=== PATIENT | female | born 1950 | race Caucasian/White ===

== ENCOUNTER 2016-05-24 14:52 | Emergency (ER) | payer MEDICARE, BC ==
[2016-05-24 15:11] VITALS: BP 139/82
--- NOTE | 2016-05-24 17:18 | RAD ---
Indication: Fall, right hip pain. 2. views of the right hip including an AP view the pelvis demonstrates no fracture. Joint spaces well-preserved. IMPRESSION: Unremarkable right hip.
--- NOTE | 2016-05-24 17:18 | RAD ---
Indication: Right thumb pain. 3 views of the right thumb demonstrates degenerative changes of the trapezium first metacarpal joint. Valgus deformity of the middle phalanx is noted. IMPRESSION: No fracture is identified although degenerative changes of the trapezium first metacarpal joint is noted.
--- NOTE | 2016-05-24 18:21 | UC ---
Minor Trauma HPI - HPI Summary HPI Summary: SLIPPED ON ICE WHEN HEADING INTO WORK TODAY. FELL AND LANDED ON RIGHT SIDE AND STRUCK HIP ON PAVEMENT AND FOOSHED RIGHT HAND. - History of Current Complaint Chief Complaint: UCUpperExtremity Stated Complaint: HIP/HAND INJ-PT FELL Time Seen by Provider: 05/24/16 16:15 Hx Obtained From: Patient Onset/Duration: Sudden Onset, Lasting Hours, Still Present Onset Of Pain: Immediate Severity Initially: Moderate Severity Currently: Moderate Pain Intensity: 4 Pain Scale Used: 0-10 Numeric Mechanism Of Injury: Fall From Height Of: Aggravating Factor(s): Other: - TOUCH Alleviating Factor(s): Nothing Associated Signs And Symptoms: Negative: Loss Of Consciousness - Allergies/Home Medications Allergies/Adverse Reactions: Allergies Allergy/AdvReac Type Severity Reaction Status Date / Time Bee Venom Allergy Severe swelling, Verified 05/24/16 15:11 hives, blood poisoning Sulfamethoxazole Allergy Intermediate Rash Verified 05/24/16 15:11 w/Trimethoprim [From Bactrim] iodine contrast Allergy Severe Hives Uncoded 05/24/16 15:11 any bug bite Allergy Intermediate Edema Uncoded 05/24/16 15:11 PMH/Surg Hx/FS Hx/Imm Hx - Additional Past Medical History Additional PMH: OSTEOPOROSIS Endocrine History Of: Denies: Diabetes, Thyroid Disease Cardiovascular History Of: Denies: Cardiac Disorders, Hypertension Respiratory History Of: Denies: COPD, Asthma GI/ History Of: Denies: Ulcer Cancer History Of: Denies: Breast Cancer - Surgical History Surgical History: None - Family History Known Family History: Positive: None, Cardiac Disease - mitral valve prolapse - father and brother, Diabetes - Social History Alcohol Use: None Substance Use Type: None Smoking Status (MU): Never Smoked Tobacco - Immunization History Most Recent Influenza Vaccination: Most Recent Tetanus Shot: UTD Review of Systems Constitutional: Negative Skin: Negative Respiratory: Negative Cardiovascular: Negative Gastrointestinal: Negative Musculoskeletal: Arthralgia All Other Systems Reviewed And Are Negative: Yes Physical Exam Triage Information Reviewed: Yes Appearance: Well-Appearing, No Pain Distress, Well-Nourished Vital Signs: Initial Vital Signs Temp 98.0 F 05/24/16 15:05 Pulse 74 05/24/16 15:05 Resp 18 05/24/16 15:05 BP 139/82 05/24/16 15:05 Pulse Ox 100 05/24/16 15:05 Vital Signs Reviewed: Yes Eyes: Positive: Conjunctiva Clear ENT: Positive: Hearing grossly normal Neck: Positive: Supple Respiratory: Positive: No respiratory distress, No accessory muscle use Cardiovascular: Positive: Pulses Normal Abdomen Description: Positive: Soft Musculoskeletal: Positive: ROM Intact, No Edema, Other: - TTP OVERLYING RIGHT GREATER TROCHNTER. TTP RIGHT 1ST MCP JOINT. NO SNUFFBOX TENDERNESS OR WRIST TENDERNESS Neurological: Positive: Alert Psychological: Positive: Age Appropriate Behavior Skin: Negative: rashes Diagnostics - Radiology RIGHT HIP XRAY Xray Interpretation: No Acute Changes Radiology Interpretation Completed By: Radiologist No standard instances Xray Interpretation: No Acute Changes Radiology Interpretation Completed By: Radiologist Minor Trauma Course/Dx - Differential Dx/Diagnosis Provider Diagnoses: 1. RIGHT THUMB CONTUSION. 2. RIGHT TROCHANTERIC BURSITIS Discharge - Discharge Plan Condition: Stable Disposition: HOME Patient Education Materials: Hip Bursitis (ED), Contusion in Adults (ED) Referrals: Indiana Caputo MD [Primary Care Provider] - If Needed Additional Instructions: XRAYS OF RIGHT HIP AND RIGHT THUMB UNREMARKABLE. OTC MEDS NEEDED FOR DISCOMFORT. CONTUSION: Your injury has resulted in a contusion -- a crushing of the deep tissues. No injury to important structures was detected during the physician's exam. Contusions vary in the amount of pain they cause, and in the length of time required for healing. Typically, the area will become bruised, and will remain painful to touch for two or three weeks. However, most patients are back to working and playing within a few days. After the initial period of rest and cold-packs, your symptoms (together with the doctor's recommendations) will determine how rapidly you can get back to full activity. Usually this means "do what feels okay, but don't do things that hurt." If re-examination was recommended, it's important to follow up as instructed. Call the doctor or return any time if pain increases, if swelling becomes severe, if you develop numbness or weakness in an injured extremity, or if any other alarming symptoms occur. IBUPROFEN MAX DOSE: 600MG (3 TABS) EVERY 6 HRS OR 800MG (4 TABS) EVERY 8 HRS OR NAPROXEN MAX DOSE: 440MG (2 TABS) EVERY 12 HRS
== END 2016-05-24 17:46 | disposition home or self-care (01) ==
LOC: UCEAST 14:52
DX: S60.011A Contusion of right thumb without damage to nail, initial encounter (principal); W00.0XXA Fall on same level due to ice and snow, initial encounter; Y93.89 Activity, other specified; Y92.89 Other specified places as the place of occurrence of the external cause; Y99.0 Civilian activity done for income or pay; Z88.2 Allergy status to sulfonamides; Z91.041 Radiographic dye allergy status; M70.61 Trochanteric bursitis, right hip; Y93.9 Activity, unspecified
CPT/HCPCS: 99211; G0463

== ENCOUNTER 2016-08-30 07:52 | Day surgery (SDC) | payer MEDICARE, BC ==
[~2016-08-30 07:52] MED LIST: Buffered Lidocaine 0.9% SYRIN* 5 ML/SYR SYRINGE INTRADERM ONE
[2016-08-30] MEDS ORDERED: Midazolam* 1 MG/ML 2 ML VIAL (2 MG) ONE ×2 (10:49→10:55)
[2016-08-30 11:19] VITALS: BP 123/70
--- NOTE | 2016-08-30 12:52 | OP ---
DATE OF OPERATION: 08/30/2016 - [facility] DATE OF : 1950. SURGEON: Stephen To M.D. PREOPERATIVE DIAGNOSIS: Cataract left eye. POSTOPERATIVE DIAGNOSIS: Cataract left eye. OPERATIVE PROCEDURE: Phacoemulsification left eye with IOL. DESCRIPTION OF PROCEDURE: The patient was brought to the operating room after being given 1/2% Alcaine with epinephrine drops in the preoperative area. The eye was prepped and draped in the usual sterile fashion. Sterile drape and eyelid speculum were placed. Again, topical 1/2% Alcaine with epinephrine was given. A paracentesis incision was made at the 3 o'clock position with the No.75 blade. Clear cornea incision 2.2 x 2.2-mm was created at the 6 o'clock position starting at the anterior limbus using the 2.2-mm keratome. The anterior chamber was irrigated with 0.4 mL of 1% non-preservative intracameral lidocaine and filled with DisCoVisc. A capsulorrhexis was completed using the cystotome and the Utrata forceps. Hydrodissection was performed with balanced salt solution. The lens nucleus was removed with the Phacoemulsification handpiece without incident. Cortex was removed with the irrigation-aspiration handpiece. The capsular bag was re-inflated using DisCoVisc and an SN60WF 19.5 implant was inserted with the shooter. The irrigation-aspiration handpiece was used to remove all residual DisCoVisc. The eye was refilled with balanced salt solution and the wound checked and found to be watertight. Topical Maxitrol drops were given. [id number]/[facility] #: [id number] [facility]
[2016-08-30] MEDS ORDERED: Buffered Lidocaine 0.9% SYRIN* 5 ML/SYR SYRINGE ONE (13:05)
[2016-08-30] MEDS ORDERED: Lidocaine 1% MPF* 2 ML VIAL ONE (13:05)
[2016-08-30] MEDS ORDERED: Lidocaine 1% MPF wEPI 200,000* 30 ML SDV ONE (13:05)
[2016-08-30] MEDS ORDERED: Povidone Iodine 5% OPTH* 30 ML BTL ONE (13:05)
[2016-08-30] MEDS ORDERED: Proparacaine 0.5% OPHTH.SOL* 15 ML BTL ONE (13:05)
[2016-08-30] MEDS ORDERED: Flurbiprofen 0.03% OPTH.SOL* 2.5 ML BTL ONE (13:05)
[2016-08-30] MEDS ORDERED: acetaZOLAMIDE TAB* 250 MG ONE (13:05)
[2016-08-30] MEDS ORDERED: Phenylephrine 2.5% OPTH.SOL* 2 ML BTL ONE (13:05)
[2016-08-30] MEDS ORDERED: Neomycin/Polymy/Dex OPTH.SUSP* MAXITROL 0.1% 5 ML ONE (13:05)
[2016-08-30] MEDS ORDERED: Cyclopentolate 1% OPTH.SOL* 2 ML BTL ONE (13:05)
== END 2016-08-30 11:26 | disposition home or self-care (01) ==
LOC: OREAST 07:52
PROVIDERS: ATTEND Specialist
DX: H25.13 Age-related nuclear cataract, bilateral (principal); Z88.1 Allergy status to other antibiotic agents
CPT/HCPCS: A9270-GY; J2001; J2250; V2632

== ENCOUNTER 2016-09-06 07:22 | Day surgery (SDC) | payer MEDICARE, BC ==
[~2016-09-06 07:22] MED LIST changes: +Acetaminophen TAB* 325 MG PO PRN; -Buffered Lidocaine 0.9% SYRIN* 5 ML/SYR SYRINGE INTRADERM ONE
[2016-09-06] MEDS ORDERED: Lidocaine 1% MPF wEPI 200,000* 30 ML SDV ONE (08:11)
[2016-09-06] MEDS ORDERED: acetaZOLAMIDE TAB* 250 MG ONE (08:11)
[2016-09-06] MEDS ORDERED: Neomycin/Polymy/Dex OPTH.SUSP* MAXITROL 0.1% 5 ML ONE (08:11)
[2016-09-06] MEDS ORDERED: Lidocaine 1% MPF* 2 ML VIAL ONE (08:11)
[2016-09-06] MEDS ORDERED: Buffered Lidocaine 0.9% SYRIN* 5 ML/SYR SYRINGE ONE (08:11)
[2016-09-06] MEDS ORDERED: Povidone Iodine 5% OPTH* 30 ML BTL ONE (08:11)
[2016-09-06] MEDS ORDERED: Flurbiprofen 0.03% OPTH.SOL* 2.5 ML BTL ONE (08:11)
[2016-09-06] MEDS ORDERED: Proparacaine 0.5% OPHTH.SOL* 15 ML BTL ONE (08:11)
[2016-09-06] MEDS ORDERED: Cyclopentolate 1% OPTH.SOL* 2 ML BTL ONE (08:11)
[2016-09-06] MEDS ORDERED: Phenylephrine 2.5% OPTH.SOL* 2 ML BTL ONE (08:11)
[2016-09-06] MEDS ORDERED: Midazolam* 1 MG/ML 5 ML VIAL (5 MG) ONE (08:47)
[2016-09-06 09:54] VITALS: BP 127/75
--- NOTE | 2016-09-06 12:20 | OP ---
DATE OF OPERATION: 09/06/16 - [facility] DATE OF : [birth year] SURGEON: Stephen To M.D. PREOPERATIVE DIAGNOSIS: Cataract, right eye. POSTOPERATIVE DIAGNOSIS: Cataract right eye. OPERATIVE PROCEDURE: Phacoemulsification, right eye with IOL. DESCRIPTION OF PROCEDURE: The patient was brought to the operating room after being given 1/2% Alcaine with epinephrine drops in the preoperative area. The eye was prepped and draped in the usual sterile fashion. Sterile drape and eyelid speculum were placed. Again, topical 1/2% Alcaine with epinephrine was given. A paracentesis incision was made at the 9 o'clock position with the No.75 blade. Clear cornea incision 2.2 x 2.2-mm was created at the 12 o'clock position starting at the anterior limbus using the 2.2-mm keratome. The anterior chamber was irrigated with 0.4 mL of 1% non-preservative intracameral lidocaine and filled with DisCoVisc. A capsulorrhexis was completed using the cystotome and the Utrata forceps. Hydrodissection was performed with balanced salt solution. The lens nucleus was removed with the Phacoemulsification handpiece without incident. Cortex was removed with the irrigation-aspiration handpiece. The capsular bag was re-inflated using DisCoVisc and an SN60WF 19.5 implant was inserted with the shooter. The irrigation-aspiration handpiece was used to remove all residual DisCoVisc. The eye was refilled with balanced salt solution and the wound checked and found to be watertight. Topical Maxitrol drops were given. [id number]/[facility] #: [id number] [facility]
[2016-09-06] MEDS ORDERED: Buffered Lidocaine 0.9% SYRIN* 5 ML/SYR SYRINGE INTRADERM ONE (12:30)
== END 2016-09-06 10:02 | disposition home or self-care (01) ==
LOC: OREAST 07:22
PROVIDERS: ATTEND Specialist
DX: H25.11 Age-related nuclear cataract, right eye (principal); Z88.1 Allergy status to other antibiotic agents; Z91.041 Radiographic dye allergy status
CPT/HCPCS: A9270-GY; J2001; J2250; V2632

== ENCOUNTER 2016-11-24 02:45 | Emergency (ER) | payer MEDICARE, OTHER ==
[2016-11-24 02:51] VITALS: BP 134/91
[2016-11-24] MEDS ORDERED: Amoxicillin/Clavulanate TAB* 875 MG PO ONE (03:21)
--- NOTE | 2016-11-24 03:43 | ED ---
Gold Green Benjamin, scribed for Froy Bernal MD on 11/24/16 at 0322 . Skin Complaint - HPI Summary HPI Summary: 66yo female presents with a red rash on her left upper arm by the triceps. Pt received shingles vaccine on Sunday and her rash occurred approximately 1 day after. Area is red, swollen, hot to touch, and is unbearably painful. Pt also reports diffuse body aches. Reports slight fever, but denies any SOB. - History of Current Complaint Chief Complaint: EDRashSkinAbscess Stated Complaint: REACTION TO SHINGLES SHOT Hx Obtained From: Patient Onset/Duration: Started Days Ago - 2-3 days Timing: Constant Onset Severity: Moderate Current Severity: Moderate Pain Intensity: 6 Pain Scale Used: 0-10 Numeric Skin Location: Arm - left upper arm Character: Swelling, Pain, Redness Aggravating Symptom(s): Touch, Other: - movement Alleviating Symptom(s): Nothing Associated Signs & Symptoms: Fever, Rash - left upper arm - Allergy/Home Medications Allergies/Adverse Reactions: Allergies Allergy/AdvReac Type Severity Reaction Status Date / Time Bee Venom Allergy Severe swelling, Verified 11/24/16 02:51 hives, blood poisoning Sulfamethoxazole Allergy Intermediate Rash Verified 11/24/16 02:51 w/Trimethoprim [From Bactrim] iodine contrast Allergy Severe Hives Uncoded 11/24/16 02:51 any bug bite Allergy Intermediate Edema Uncoded 11/24/16 02:51 PMH/Surg Hx/FS Hx/Imm Hx Endocrine/Hematology History: Denies: Hx Diabetes, Hx Thyroid Disease Cardiovascular History: Denies: Hx Hypertension, Other Cardiovascular Problems/Disorders Respiratory History: Denies: Hx Asthma, Hx Chronic Obstructive Pulmonary Disease (COPD), Other Respiratory Problems/Disorders GI History: Reports: Hx Hiatal Hernia - small Denies: Hx Ulcer, Other GI Disorders History: Reports: Hx Kidney Stones - 04/2014, passed Musculoskeletal History: Reports: Hx Scoliosis Denies: Hx Osteoporosis Sensory History: Reports: Hx Cataracts - elva, Hx Contacts or Glasses - glasses Denies: Hx Hearing Aid Opthamlomology History: Reports: Hx Cataracts - elva, Hx Contacts or Glasses - glasses Neurological History: Denies: Other Neuro Impairments/Disorders - Cancer History Hx Chemotherapy: No Hx Radiation Therapy: No - Surgical History Hx Anesthesia Reactions: No Infectious Disease History: No Infectious Disease History: Denies: Hx Hepatitis, Hx Human Immunodeficiency Virus (HIV), History Other Infectious Disease, Traveled Outside the [place] in Last 30 Days - Family History Known Family History: Positive: Cardiac Disease - mitral valve prolapse - father and brother, Diabetes - Social History Occupation: Retired Lives: Alone Alcohol Use: None Substance Use Type: Reports: None Smoking Status (MU): Never Smoked Tobacco Review of Systems Positive: Fever Eyes: Negative ENT: Negative Cardiovascular: Negative Respiratory: Negative Gastrointestinal: Negative Genitourinary: Negative Positive: Myalgia, Edema - left upper arm Positive: Rash - left upper arm Neurological: Negative Psychological: Normal All Other Systems Reviewed And Are Negative: Yes Physical Exam - Summary Physical Exam Summary: The patient is well-nourished in no acute distress and in no acute pain. The skin is warm and dry and skin color reflects adequate perfusion. There is a well defined erythematous area on the left tricep. Area is tender, coalescing. Not fluctulant, not an abscess. There is one solitary axillary lymph node on left. HEENT: The head is normocephalic and atraumatic. The pupils are equal and reactive. The conjunctivae are clear and without drainage. Nares are patent and without drainage. Mouth reveals moist mucous membranes and the throat is without erythema and exudate. The external ears are intact. The ear canals are patent and without drainage. The tympanic membranes are intact. Neck is supple with full range of motion and non-tender. There are no carotid bruits. There is no neck vein distension. Respiratory: Chest is non-tender. Lungs are clear to auscultation and breath sounds are symmetrical and equal. Cardiovascular: Hear is regular rate and rhythm. There is no murmur or rub auscultated. There is no peripheral edema and pulses are symmetrical and equal. Abdomen: The abdomen is soft and non-tender. There are normal bowel sounds heard in all four quadrants and there is no organomegaly palpated. Musculoskeletal: There is no back pain noted. Extremities are non-tender with full range of motion. There is good capillary refill. There is no peripheral edema or calf tenderness elicited. Neurological: Patient is alert and oriented to person, place and time. The patient has symmetrical motor strength in all four extremities. Cranial nerves are grossly intact. Deep tendon reflexes are symmetrical and equal in all four extremities. Psychiatric: The patient has an appropriate affect and does not exhibit any anxiety or depression. Triage Information Reviewed: Yes Vital Signs On Initial Exam: Initial Vitals Temp Pulse Resp BP Pulse Ox 98.0 F 65 18 134/91 100 11/24/16 02:48 11/24/16 02:48 11/24/16 02:48 11/24/16 02:48 11/24/16 02:48 Vital Signs Reviewed: Yes Diagnostics - Vital Signs Vital Signs Temp Pulse Resp BP Pulse Ox 11/24/16 02:48 98.0 F 65 18 134/91 100 - Laboratory Lab Statement: Any lab studies that have been ordered have been reviewed, and results considered in the medical decision making process. Course/Dx - Course Course Of Treatment: Reviewed pt's medication list and allergies. Blood pressure noted. - Differential Diagnoses - Skin Complaint Differential Diagnoses: Abscess, Allergic Reaction, Cellulitis - Diagnoses Provider Diagnoses: Cellulitis of left upper arm Discharge - Discharge Plan Condition: Stable Disposition: HOME Prescriptions: Amoxicillin/Clavulanate TAB* [Augmentin TAB 875*] 875 mg PO BID #14 tab Patient Education Materials: Cellulitis (ED) Referrals: Indiana Caputo MD [Primary Care Provider] - The documentation as recorded by the Gold may Benjamin accurately reflects the service I personally performed and the decisions made by Dolores osorio Drew, MD.
== END 2016-11-24 03:42 | disposition home or self-care (01) ==
LOC: ED 02:45
DX: L03.114 Cellulitis of left upper limb (principal); R50.9 Fever, unspecified; Z88.2 Allergy status to sulfonamides; Z91.030 Bee allergy status; Z91.041 Radiographic dye allergy status
CPT/HCPCS: 99282; A9270-GY

== ENCOUNTER 2017-08-28 06:20 | Day surgery (SDC) | payer MEDICARE, OTHER ==
--- NOTE | 2017-08-14 10:04 | HP ---
CC: Indiana Caputo MD * ADMISSION HISTORY AND PHYSICAL: DATE OF ADMISSION: 08/28/17 ATTENDING SURGEON: Hima Jim MD * (DICTATED BY ALLIE SEGUNDO) CHIEF COMPLAINT: Right inguinal hernia. HISTORY OF PRESENT ILLNESS: This is a 67-year-old generally healthy female who first knew about a right inguinal hernia as an incidental finding on CT scan of the abdomen and pelvis. At that time, she had no symptoms. In October 2016 after helping her daughter move, she noticed some pain in right groin, but that seemed to resolve. She was seen at that time by Dr. Jim, who confirmed the presence of a right inguinal hernia. She deferred repair because of lack of significant symptoms. More recently in the past month or two, she has noticed more right groin pain, particularly related to position or movement. She states that it feels like a pulled muscle. She will notice it sometimes even when turning over in bed. It is typically fleeting in nature and sometimes radiates to the right lower back. There are no symptoms to suggest incarceration or strangulation. No changes in bowel or bladder function. She was seen again by Dr. Jim on 08/02/17. Exam at that time confirmed the presence of a reducible right inguinal hernia. Dr. Jim has discussed with her the indications for repair , the risks, benefits and alternatives, as well as the methods thereof. She would like to proceed as scheduled with laparoscopic repair of right inguinal hernia with mesh. PAST MEDICAL HISTORY: Hypotension (largely asymptomatic), nephrolithiasis, osteoporosis (by DEXA scan; she has had workup with Dr. Herron). She has had at least 1 or more episodes of superficial thrombophlebitis, but no episodes of DVT. She has a history of scoliosis and a right breast lump that had been followed closely and apparently has resolved on its own. She has a past history of benign positional vertigo, which has been asymptomatic in recent years. PAST SURGICAL HISTORY: Her only previous surgery is bilateral cataract extraction with lens implant. CURRENT MEDICATIONS: 1. [place]ecaton[place] oil 500 mg once daily. 2. Vitamin D3 of 1000 IU once daily. 3. Vitamin B12 of 500 mcg once daily. 4. She has a prescription for meclizine, but has not needed to use it in recent years. DRUG ALLERGIES: BACTRIM (rash), IODINE (from IV contrast: She had a couple of hives), CLINDAMYCIN (rash?), (TYLENOL WITH CODEINE was listed on her chart record, but she states that she has used this successfully for pain related to her nephrolithiasis). FAMILY HISTORY: Negative for anesthesia problems, bleeding or clotting disorders. SOCIAL HISTORY: The patient is . She lives alone, but does have some local family support. She is a retired teacher. She denies use of tobacco, alcohol or recreational drugs. REVIEW OF SYSTEMS: General: No recent constitutional symptoms or acute illnesses. Weight has been stable. Eyes: No recent changes noted. Ears, Nose , Throat: No problems reported. Cardiovascular: History of hypotension (was noted especially on colonoscopy). No chest pain, palpitations, or history of murmur. Respiratory: No history of asthma, chronic cough, or shortness of breath. GI: No problems reported. Colonoscopy done in 2017, which she states was a normal study with no recommended followup. : As above. No hematuria. CROWN BUFFER: She is up to date within the past year for breast and pelvic exams, reportedly normal. Endocrine: No diabetes or thyroid dysfunction. PHYSICAL EXAMINATION GENERAL: Well-nourished, well-developed female, in no acute distress. VITAL SIGNS: Height 5 feet 1-1/2 inches, weight 126 pounds. Blood pressure 112 /72, pulse 60, respirations 16. HEENT: Pupils are equal, round, reactive. EOMs intact. No conjunctival pallor. Oropharynx: Teeth in good repair. No intraoral lesions. NECK: No lymphadenopathy in the cervical or supraclavicular regions. No thyromegaly or masses. LUNGS: Clear to auscultation. No wheezes. HEART: Regular rate and rhythm. No murmur appreciated. ABDOMEN: Soft, nontender to palpation. No palpable masses or organomegaly with the exception of the right inguinal hernia as per Dr. Jim' exam. GENITALIA: Not done. RECTAL: Not done. BACK: She does have some curvature related to her scoliosis. No CVA tenderness. EXTREMITIES: No edema. No palpable tenderness. NEUROLOGICAL: Grossly intact. SKIN: Warm and dry. No suspicious rashes or lesions. IMPRESSION: Right inguinal hernia. PLAN: Laparoscopic repair of right inguinal hernia with mesh. ALILE SEGUNDO [id number]/[facility] #: [id number] [facility] HOSPITALSharad
[~2017-08-28 06:20] MED LIST changes: -Acetaminophen TAB* 325 MG PO PRN; +Buffered Lidocaine 0.9% SYRIN* 5 ML/SYR SYRINGE INTRADERM ONE; +Metoclopramide TAB* 10 MG PO ONE; +celeCOXIB CAP* 100 MG PO ONE
[2017-08-28] MEDS ORDERED: celeCOXIB CAP* 100 MG ONE (07:03)
[2017-08-28] MEDS ORDERED: Metoclopramide TAB* 10 MG ONE (07:03)
[2017-08-28] MEDS ORDERED: ceFAZolin 2 GM PREMIX (*) 2 GM/50 ML BAG IVPB ONE (07:04)
[2017-08-28] MEDS ORDERED: Saline, Bacteriostatic* 30 ML VIAL ONE (07:11)
[2017-08-28] MEDS ORDERED: Bupivacaine 0.5% SDV PF* 30ML VIAL ONE (07:11)
[2017-08-28] MEDS ORDERED: Atracurium* 10 MG/ML 10 ML VIAL ONE (07:39)
[2017-08-28] MEDS ORDERED: Ketorolac INJ* 30 MG/ML 1 ML VIAL ONE (07:39)
[2017-08-28] MEDS ORDERED: Lidocaine 2% PF * 5 ML VIAL ONE (07:39)
[2017-08-28] MEDS ORDERED: Propofol* 10 MG/ML 20 ML BTL IV PUSH ONE (07:39)
[2017-08-28] MEDS ORDERED: Dexamethasone IV* 4 MG/ML 1 ML (4 MG) ONE (07:39)
[2017-08-28] MEDS ORDERED: fentaNYL* 50 MCG/ML 2 ML VIAL (100 MCG VIAL) ONE ×2 (07:39→10:53)
[2017-08-28] MEDS ORDERED: EPHEDrine (Pressors)* 50 MG/ML VIAL ONE (08:16)
[2017-08-28] MEDS ORDERED: Naloxone* 0.4 MG/ML 1 ML VIAL IV PRN (08:28)
[2017-08-28] MEDS ORDERED: DiMENhydriNATE IV* 50 MG/ML VIAL IV PUSH PRN (08:28)
[2017-08-28] MEDS ORDERED: fentaNYL* 50 MCG/ML 2 ML VIAL (100 MCG VIAL) IV PRN (08:28)
[2017-08-28] MEDS ORDERED: Ondansetron INJ* 2 MG/ML VIAL IV PRN (08:28)
[2017-08-28] MEDS ORDERED: HYDROcodone/ACETAMIN 5-325 MG* 1 TAB PO PRN (08:28)
--- NOTE | 2017-08-28 09:30 | PN ---
Progress Note - Progress Note Date of Service: 08/28/17 Note: Preop Dx: Right inguinal hernia Postop Dx: Same, indirect Procedure: laparoscopic right inguinal hernia repair with mesh Anesthesia: SANTY Surgeon: Diandra Assist: ALLIE Brady; Pretty STOREY EBL: less than 50ccs Specimen: none Fluids: 1200ml lactated ringers drains: none Findings: dictated
[2017-08-28] MEDS ORDERED: HYDROcodone/ACETAMIN 5-325 MG* 1 TAB ONE (09:31)
[2017-08-28] MEDS ORDERED: Acetaminophen TAB* 325 MG PO PRN (09:39)
[2017-08-28 11:19] VITALS: BP 139/83
--- NOTE | 2017-08-29 08:17 | OP ---
CC: Indiana Caputo MD * DATE OF OPERATION: 08/28/17 - [facility] DATE OF : 48 SURGEON: Hima Jim MD CARE AID: ALLIE Berg ANESTHESIOLOGIST: Dr. Frias. ANESTHESIA: General endotracheal. PRE-OP DIAGNOSIS: Right inguinal hernia. POST-OP DIAGNOSIS: Right inguinal hernia. OPERATIVE PROCEDURE: Laparoscopic preperitoneal repair, right inguinal hernia with mesh. ESTIMATED BLOOD LOSS: Minimal. IV FLUIDS: Crystalloid. SPECIMEN: None. DRAINS: None. COMPLICATIONS: None. COUNTS: Instrument, needle, and sponge counts were correct. DESCRIPTION OF PROCEDURE: The patient was brought to the operating room and placed on the table supine. Sequential compression devices were placed in both lower extremities. General anesthesia was administered. Turner catheter was placed. She was positioned and padded appropriately and then prepped and draped in usual sterile fashion. Time-out was performed. Local anesthetic was infiltrated into the skin and soft tissue prior to making each incision. A curvilinear infraumbilical incision was created and the subcutaneous tissues were divided with blunt dissection and cautery. The anterior rectus fascia was incised to the right of midline and then a preperitoneal balloon dissector was placed down to the level of the pubic symphysis. Under direct visualization, the dissector was insufflated and removed and replaced with a 12-mm blunt port. Carbon dioxide was insufflated then to a pressure of 10 mmHg and to the preperitoneal space. Two 5-mm trocars were placed in the lower midline. Dissection proceeded from the midline laterally, identifying and preserving the inferior epigastric vessels. There appeared to be an indirect inguinal hernia. The peritoneum was dissected free from the round ligament and in doing so the peritoneum was torn. This was closed off using the endoscopic clip groover and striper operator. After completing the dissection lateral to the anterosuperior iliac spine, repair was performed with the Medtronic ProGrip mesh. This was cut in a fashion to cover the direct, indirect and femoral spaces. It was placed into the preperitoneal space and properly positioned. Then, the 5-mm ports were removed. The 12-mm port was replaced into the peritoneal cavity and peritoneoscopy was performed. At which point, there was identified a small rent within the peritoneum and the pelvis. A 5-mm trocar was advanced into the peritoneal cavity and then the endoscopic clip groover and striper operator was again used at that time to close the defect in the peritoneum. The mesh appeared to be in good position. The carbon dioxide was released and ports were removed and then the umbilical site was closed with 0 Vicryl to approximate the fascia in 2 layers. The skin incisions were closed with 4-0 Monocryl in subcuticular fashion. Steri- Strips were applied. The patient tolerated this procedure well, was extubated and transferred to recovery in stable condition. [id number]/[facility] #: [id number] [facility]ENTER[facility]arad
== END 2017-08-28 11:40 | disposition home or self-care (01) ==
LOC: OR 06:20
PROVIDERS: ATTEND Surgery
DX: K40.90 Unilateral inguinal hernia, without obstruction or gangrene, not specified as recurrent (principal); I95.9 Hypotension, unspecified; Z87.442 Personal history of urinary calculi; M81.0 Age-related osteoporosis without current pathological fracture; Z86.72 Personal history of thrombophlebitis
CPT/HCPCS: A9270-GY; J0690; J1100; J1885; J2704; J3010

== ENCOUNTER 2017-12-31 10:37 | Emergency (ER) | payer MEDICARE, OTHER ==
[2017-12-31 10:46] VITALS: BP 136/77
--- NOTE | 2017-12-31 21:10 | UC ---
FLU HPI - HPI Summary HPI Summary: 67 y/o female with no PMH, no medications who presents with several days of sore throat, dry cough, low grade fever, body aches, swollen glands, bdy pains, chest/ nasal thighness/ congestion. Patient is concerned about flu, strep throat, would like testing. - History of Current Complaint Chief Complaint: UCRespiratory Stated Complaint: SORE THROAT,BODYACHES Time Seen by Provider: 12/31/17 11:33 Hx Obtained From: Patient ?: No Onset/Duration: Sudden Onset, Lasting Days Severity Currently: Mild Severity Initially: Moderate Pain Intensity: 4 Pain Scale Used: 0-10 Numeric - Allergy/Home Medications Allergies/Adverse Reactions: Allergies Allergy/AdvReac Type Severity Reaction Status Date / Time sulfamethoxazole Allergy Hives Verified 12/31/17 10:46 [From Bactrim] trimethoprim [From Bactrim] Allergy Hives Verified 12/31/17 10:46 Bee Venom Allergy Severe Swelling Uncoded 12/31/17 10:46 iodine contrast Allergy Severe Hives Uncoded 12/31/17 10:46 any bug bite Allergy Intermediate Edema Uncoded 12/31/17 10:46 PMH/Surg Hx/FS Hx/Imm Hx Previously Healthy: Yes - Surgical History Surgical History: Yes Surgery Procedure, Year, and Place: Bilateral cataracts 2017. Colonoscopy x2. hernia repair 2018 - Family History Known Family History: Positive: None, Cardiac Disease - mitral valve prolapse - father and brother, Diabetes - Social History Alcohol Use: None Substance Use Type: None Smoking Status (MU): Never Smoked Tobacco - Immunization History Most Recent Influenza Vaccination: 2012/2013 Most Recent Tetanus Shot: UTD Review of Systems Constitutional: Fever, Chills, Fatigue ENT: Sore Throat, Ear Ache, Sinus Congestion, Sinus Pain/Tenderness Respiratory: Cough Is Patient Immunocompromised?: No All Other Systems Reviewed And Are Negative: Yes Physical Exam Triage Information Reviewed: Yes Appearance: Well-Appearing, No Pain Distress, Well-Nourished Vital Signs: Initial Vital Signs Temp 97.4 F 12/31/17 10:42 Pulse 96 12/31/17 10:42 Resp 18 12/31/17 10:42 BP 136/77 12/31/17 10:42 Pulse Ox 99 12/31/17 10:42 Vital Signs Reviewed: Yes Eyes: Positive: Conjunctiva Clear ENT: Positive: Pharyngeal erythema - minimal, no exudates, TMs normal, Sinus tenderness - b/l, Uvula midline. Negative: TM dull, TM red, Tonsillar swelling , Tonsillar exudate Neck: Positive: Supple, Nontender, Enlarged Nodes @ - minimal b'l submand Respiratory: Positive: Chest non-tender, Normal breath sounds, No respiratory distress, No accessory muscle use, Wheezing - mild lower lobes. Negative: Respiratory distress, Decreased breath sounds, Crackles, Rhonchi, Stridor, Expiration Cardiovascular: Positive: RRR, No Murmur Flu Course/Dx - Course Course Of Treatment: probable pneumonia, abx given, follow up with PCP, conervative treatment rapid strep, flu negative - Differential Dx/Diagnosis Differential Diagnosis/HQI/PQRI: Pneumonia Provider Diagnoses: pneumonia Discharge - Sign-Out/Discharge Documenting (check all that apply): Patient Departure All imaging exams completed and their final reports reviewed: No Studies - Discharge Plan Condition: Good Disposition: HOME Prescriptions: Azithromyxin GABBY (NF) [Z-Gabby (Zithromax) 250 mg tabs #6] 2 tab PO .TODAY, THEN 1 DAILY #6 tab Patient Education Materials: Bacterial Pneumonia (ED) Referrals: Indiana Caputo MD [Primary Care Provider] - Additional Instructions: - Antibiotics as directed - Increase fluid, rest - Follow up with primary physician within 3-4 days if no improvement - Billing Disposition and Condition Condition: GOOD Disposition: Home
== END 2017-12-31 12:10 | disposition home or self-care (01) ==
LOC: UCEAST 10:37
DX: J18.9 Pneumonia, unspecified organism (principal); Z88.2 Allergy status to sulfonamides; Z88.8 Allergy status to other drugs, medicaments and biological substances; Z91.018 Allergy to other foods
CPT/HCPCS: 87651; 99212; G0463

== ENCOUNTER → 2018-03-02 12:54 | Emergency (ER) | payer MEDICARE, OTHER ==
[2018-03-02 14:58] VITALS: BP 155/85
--- NOTE | 2018-03-04 06:15 | ED ---
Lower Extremity - HPI Summary HPI Summary: Patient is 67-year-old female with a history of varicose veins and superficial, in the left lower extremity presenting to the ED with request for ultrasound of the left lower extremity due to pain just distal to the medial ankle joint 2 days. She states it is difficult to bear weight due to pain. She also endorses some erythema around the area. She denies any smoking history, travel history recently or OCPs. She is not tried anything for pain, however has been using ice for good relief. Denies any other symptoms or concerns at this time. - History of Current Complaint Chief Complaint: EDExtremityLower Stated Complaint: LEFT FOOT INJURY Time Seen by Provider: 03/02/18 14:03 Hx Obtained From: Patient Mechanism Of Injury: Unknown Onset of Pain: Minutes Onset/Duration: Minutes Severity Initially: Mild Severity Currently: Mild Pain Intensity: 3 Pain Scale Used: 0-10 Numeric Location: Is Discrete @ - medial L foot Associated Signs And Symptoms: Positive: Redness. Negative: Swelling Aggravating Factor(s): Standing, Ambulation Alleviating Factor(s): Rest Able to Bear Weight: Yes - Risk Factors Gout Risk Factors: Negative Septic Arthritis Risk Factor: Negative - Allergies/Home Medications Allergies/Adverse Reactions: Allergies Allergy/AdvReac Type Severity Reaction Status Date / Time sulfamethoxazole Allergy Hives Verified 03/02/18 12:55 [From Bactrim] trimethoprim [From Bactrim] Allergy Hives Verified 03/02/18 12:55 Bee Venom Allergy Severe Swelling Uncoded 03/02/18 12:55 iodine contrast Allergy Severe Hives Uncoded 03/02/18 12:55 any bug bite Allergy Intermediate Edema Uncoded 03/02/18 12:55 PMH/Surg Hx/FS Hx/Imm Hx Previously Healthy: Yes Endocrine/Hematology History: Denies: Hx Diabetes, Hx Thyroid Disease Cardiovascular History: Denies: Hx Hypertension, Hx Pacemaker/ICD, Other Cardiovascular Problems/ Disorders Respiratory History: Denies: Hx Asthma, Hx Chronic Obstructive Pulmonary Disease (COPD), Other Respiratory Problems/Disorders GI History: Reports: Hx Hiatal Hernia - endoscopy 2016 Denies: Hx Ulcer, Other GI Disorders History: Reports: Hx Kidney Stones - 04/2014, passed Denies: Other Problems/Disorders Musculoskeletal History: Reports: Hx Scoliosis, Other Musculoskeletal History - right inguinal hernia, osteoporosis Denies: Hx Osteoporosis Sensory History: Reports: Hx Cataracts - Bilateral, removed 2017, Hx Contacts or Glasses - Glasses Denies: Hx Hearing Aid Opthamlomology History: Reports: Hx Cataracts - Bilateral, removed 2017, Hx Contacts or Glasses - Glasses Neurological History: Reports: Other Neuro Impairments/Disorders - Begning positional vertigo Psychiatric History: Denies: Hx Panic Disorder - Cancer History Hx Chemotherapy: No Hx Radiation Therapy: No - Surgical History Surgery Procedure, Year, and Place: Bilateral cataracts 2017. Colonoscopy x2. hernia repair 2018 Hx Anesthesia Reactions: Yes - low blood pressure - Immunization History Hx Pertussis Vaccination: No Immunizations Up to Date: Yes Infectious Disease History: No Infectious Disease History: Denies: Hx Hepatitis, Hx Human Immunodeficiency Virus (HIV), History Other Infectious Disease, Traveled Outside the [place] in Last 30 Days - Family History Known Family History: Positive: None, Cardiac Disease - mitral valve prolapse - father and brother, Diabetes - Social History Occupation: Unemployed Lives: Alone Alcohol Use: None Hx Substance Use: No Substance Use Type: Reports: None Hx Tobacco Use: No Smoking Status (MU): Never Smoked Tobacco Review of Systems Constitutional: Negative Negative: Fever, Chills, Fatigue, Skin Diaphoresis Negative: Epistaxis, Dental Pain Negative: Chest Pain Genitourinary: Negative Positive: no symptoms reported, see HPI Positive: Arthralgia - left medial foot pain Skin: Negative Neurological: Negative All Other Systems Reviewed And Are Negative: Yes Physical Exam Triage Information Reviewed: Yes Vital Signs On Initial Exam: Initial Vitals Temp Pulse Resp BP Pulse Ox 97.2 F 67 16 167/77 100 03/02/18 12:56 03/02/18 12:56 03/02/18 12:56 03/02/18 12:56 03/02/18 12:56 Vital Signs Reviewed: Yes Appearance: Positive: Well-Appearing, Well-Nourished Skin: Positive: Warm, Skin Color Reflects Adequate Perfusion, Other - erythema to the L medial foot measuring 2x2 without swelling Neck: Positive: Supple, No Lymphadenopathy Respiratory/Lung Sounds: Positive: Clear to Auscultation Cardiovascular: Positive: RRR, Pulses are Symmetrical in both Upper and Lower Extremities Musculoskeletal: Positive: Strength/ROM Intact Neurological: Positive: Sensory/Motor Intact, Alert, Oriented to Person Place, Time Psychiatric: Positive: Normal, Affect/Mood Appropriate AVPU Assessment: Alert Diagnostics - Vital Signs Vital Signs Temp Pulse Resp BP Pulse Ox 03/02/18 14:57 99.2 F 67 18 155/85 100 03/02/18 12:56 97.2 F 67 16 167/77 100 - Laboratory Lab Statement: Any lab studies that have been ordered have been reviewed, and results considered in the medical decision making process. Lower Extremity Course/Dx - Course Course Of Treatment: Patient is evaluated erythema and pain to the medial side of the L foot just distal to the left ankle joint. Denies other sxs. Denies hx of DVT, however endorses varicose veins. on physical examination, there is erythema to the medial foot without swelling. There is slight pain on palpation , however no evidence of cellulitis. It appears that was a superficial vein which may have broken. No pain to the calf or leg otherwise. Denies other sxs. D-dimer today as outpatient was <230. She will be discharged with care instructions of ice and elevation and to return if she develops worsening erythema or streaking up the leg. - Diagnoses Provider Diagnoses: Varicose vein of leg, Foot pain Discharge - Sign-Out/Discharge Documenting (check all that apply): Patient Departure - Discharge Plan Condition: Stable Disposition: HOME Referrals: Indiana Caputo MD [Primary Care Provider] - Additional Instructions: Moist heat to the area to the back and the foot Also ice the foot intermittently Ibuprofen 600mg three times daily Elevate the foot when possible and do not overuse Gentle stretches of the back - Billing Disposition and Condition Condition: STABLE Disposition: Home
== END | disposition home or self-care (01) ==
LOC: ED 12:54
DX: I83.92 Asymptomatic varicose veins of left lower extremity (principal); M79.672 Pain in left foot; Z88.2 Allergy status to sulfonamides
CPT/HCPCS: 99282

== ENCOUNTER 2018-05-22 10:23 | Emergency (ER) | payer MEDICARE, OTHER ==
[2018-05-22 10:32] VITALS: BP 151/84
--- NOTE | 2018-05-22 11:01 | UC ---
Shoulder Pain HPI - HPI Summary HPI Summary: 67 yo WF p/w acute right shoulder pain since last night as she was pulling on a garbage can and felt a sharp pain on her right shoulder now can only abduct sagitally and laterally to about 90 degrees, also had left sided scoliosis, no numbness or tingling to her fingers. - History of Current Complaint Chief Complaint: UCGeneralIllness Stated Complaint: SHOULDER,NECK,CHEST PAIN Time Seen by Provider: 05/22/18 10:45 Hx Obtained From: Patient Onset/Duration: Sudden Onset Timing: Constant Severity Initially: Moderate Severity Currently: Moderate Pain Intensity: 4 Character: Sharp, Dull, Aching Aggravating Factor(s): Movement Alleviating Factor(s): Rest - Allergies/Home Medications Allergies/Adverse Reactions: Allergies Allergy/AdvReac Type Severity Reaction Status Date / Time sulfamethoxazole Allergy Hives Verified 05/22/18 10:33 [From Bactrim] trimethoprim [From Bactrim] Allergy Hives Verified 05/22/18 10:33 Bee Venom Allergy Severe Swelling Uncoded 05/22/18 10:33 iodine contrast Allergy Severe Hives Uncoded 05/22/18 10:33 any bug bite Allergy Intermediate Edema Uncoded 05/22/18 10:33 PMH/Surg Hx/FS Hx/Imm Hx Previously Healthy: Yes - Surgical History Surgical History: Yes Surgery Procedure, Year, and Place: Bilateral cataracts 2017. Colonoscopy x2. hernia repair 2018 - Family History Known Family History: Positive: None, Cardiac Disease - mitral valve prolapse - father and brother, Diabetes - Social History Alcohol Use: None Substance Use Type: None Smoking Status (MU): Never Smoked Tobacco - Immunization History Most Recent Influenza Vaccination: 2012/2013 Most Recent Tetanus Shot: UTD Review of Systems All Other Systems Reviewed And Are Negative: Yes - Comments Additional Review of Systems Comments: Constitutional: Negative Skin: Negative Eyes: Negative ENT: Negative Cardiovascular: Negative Respiratory: Negative Gastrointestinal: Negative Genitourinary: Negative Musculoskeletal: See HPI Neurological: Negative Psychological: Normal All Other Systems Reviewed And Are Negative: Yes Physical Exam - Summary Physical Exam Summary: Triage Information Reviewed: Yes Appearance: No Pain Distress Eye Exam: Normal ENT Exam: Normal Neck: Supple Respiratory: Lungs clear, Normal breath sounds Cardiovascular: Positive: RRR, S1, S2 Abdominal Exam: Normal Musculoskeletal Exam: right shoulder joint pain, tender during abduction to 90 degrees in sagittal and coronal directions Neurological Exam: Normal Psychological Exam: Normal Skin Exam: Normal Vital Signs: Initial Vital Signs Temp 36.6 C 05/22/18 10:27 Pulse 72 05/22/18 10:27 Resp 18 05/22/18 10:27 BP 151/84 05/22/18 10:27 Pulse Ox 100 05/22/18 10:27 Shoulder Course/Dx - Course Course Of Treatment: XR of B/L shoulders NEG for fx or dislocation, PT and or MRI if pain persists - Differential Dx/Diagnosis Provider Diagnosis: Shoulder pain, right, Shoulder pain, acute Discharge - Sign-Out/Discharge Documenting (check all that apply): Patient Departure All imaging exams completed and their final reports reviewed: Yes - Discharge Plan Condition: Stable Disposition: HOME Patient Education Materials: Shoulder Sprain (ED), Shoulder Pain (ED) Referrals: Indiana Caputo MD [Primary Care Provider] - - Billing Disposition and Condition Condition: STABLE Disposition: Home
== END 2018-05-22 11:58 | disposition home or self-care (01) ==
LOC: UCEAST 10:23
DX: M25.511 Pain in right shoulder (principal); Z88.2 Allergy status to sulfonamides; Z91.09 Other allergy status, other than to drugs and biological substances; Z91.030 Bee allergy status; Z91.041 Radiographic dye allergy status; Z88.1 Allergy status to other antibiotic agents
CPT/HCPCS: 99211; G0463

== ENCOUNTER 2018-12-08 16:27 | Emergency (ER) | payer MEDICARE, OTHER ==
[2018-12-08] MEDS ORDERED: Ketorolac INJ* 30 MG/ML 1 ML VIAL IV PUSH ONE (17:08)
[2018-12-08] MEDS ORDERED: NS 0.9% 1000 ML** 1,000 ML IV ONE (17:08)
[2018-12-08 17:09] LABS: Urine Appearance Clear; Urine Bilirubin Negative (Negative); Urine Blood Negative (Negative); Urine Color Colorless; Urine Glucose Negative (Negative); Urine Ketones Negative (Negative); Urine Nitrite Negative (Negative); Urine Protein Negative (Negative); Urine Specific Gravity 1.002 (1.010-1.030); Urine Urobilinogen Negative (Negative)
[2018-12-08 17:19] LABS: ABS Eosinophils 0.1 10^3/ul (0-0.6); ABS Lymphocytes 1.7 10^3/ul (1.0-4.8); ABS Monocytes 0.5 10^3/ul (0-0.8); ABS Neutrophils 4.2 10^3/ul (1.5-7.7); Eosinophil % 1.5 %; Hematocrit 35 % (35-47); Hemoglobin 11.5 g/dL (12.0-16.0); Lymphocyte % 25.5 %; Mean Corpuscular HGB Conc 33 g/dL (31-36); Mean Corpuscular Hemoglobin 29 pg (27-31); Mean Corpuscular Volume 89 fL (80-97); Mean Platelet Volume 9.8 fL (7.4-10.4); Nucleated Red Blood Cells % 0.1; Platelet Count 205 10^3/uL (150-450); Red Blood Count 3.97 10^6 /uL (3.70-4.87); Red Cell Distribution Width 14 % (10-15); White Blood Count 6.5 10^3/uL (3.5-10.8)
[2018-12-08 17:35] LABS: Albumin/Globulin Ratio 1.5 (1-3); BUN/Creatinine Ratio 24.1 (8-20); C Reactive Protein 9.72 mg/L (<8.01); Calcium 9.4 mg/dL (8.6-10.3); EGFR African American 124.7 (>60); EGFR Non-African American 103.1 (>60); Globulin 2.7 g/dL (2-4); Potassium 3.9 mmol/L (3.5-5.0); Total Bilirubin 0.3 mg/dL (0.2-1.0); Total Protein 6.7 g/dL (6.4-8.9)
[2018-12-08] MEDS ORDERED: Cyclobenzaprine TAB* 10 MG PO ONE (18:24)
[2018-12-08 18:46] VITALS: BP 127/75
--- NOTE | 2018-12-08 20:58 | ED ---
Back Pain - HPI Summary HPI Summary: 68 year old female presents to the ED with a chief complaint of a "horrific" back pain that radiates to her flank and abdomen, beginning several days ago. She reports nausea, and frequent urination. She denies fever, vomiting, constipation, diarrhea, discharge, or bleeding. She has Hx of kidney stones, sciatica, and hernia. She has had 2 superficial clots in her legs. She had a bad fall in September when she hurt her hip falling in the bathroom. Patient does not smoke tobacco, drink alcohol, or do recreational drugs. - History of Current Complaint Chief Complaint: EDAbdPain Stated Complaint: RLQ,RLB PAIN PER EMS Time Seen by Provider: 12/08/18 16:47 Hx Obtained From: Patient Onset/Duration: Lasting Days, Still Present Onset/Duration: Started Days Ago, Still Present Timing: Constant Back Pain Location: Radiates To - flank and abdomen Severity Initially: Moderate Pain Intensity: 3 Pain Scale Used: 0-10 Numeric Character: Sharp Associated Signs And Symptoms: Positive: Abdominal Pain, Flank Pain. Negative: Fever - Allergies/Home Medications Allergies/Adverse Reactions: Allergies Allergy/AdvReac Type Severity Reaction Status Date / Time sulfamethoxazole Allergy Hives Verified 12/08/18 16:40 [From Bactrim] trimethoprim [From Bactrim] Allergy Hives Verified 12/08/18 16:40 Bee Venom Allergy Severe Swelling Uncoded 05/22/18 10:33 iodine contrast Allergy Severe Hives Uncoded 05/22/18 10:33 any bug bite Allergy Intermediate Edema Uncoded 05/22/18 10:33 Home Medications: Home Medications Fish Oil 1,000 mg Softgel 1,000 mg pe PO DAILY 12/08/18 [History Confirmed 12/08] PMH/Surg Hx/FS Hx/Imm Hx Endocrine/Hematology History: Denies: Hx Diabetes, Hx Thyroid Disease Cardiovascular History: Denies: Hx Hypertension, Hx Pacemaker/ICD, Other Cardiovascular Problems/ Disorders Respiratory History: Denies: Hx Asthma, Hx Chronic Obstructive Pulmonary Disease (COPD), Other Respiratory Problems/Disorders GI History: Reports: Hx Hiatal Hernia - endoscopy 2016 Denies: Hx Ulcer, Other GI Disorders History: Reports: Hx Kidney Stones - 04/2014, passed Denies: Hx Renal Disease, Other Problems/Disorders Musculoskeletal History: Reports: Hx Scoliosis, Other Musculoskeletal History - right inguinal hernia, osteoporosis Denies: Hx Osteoporosis Sensory History: Reports: Hx Cataracts - Bilateral, removed 2017, Hx Contacts or Glasses - Glasses Denies: Hx Hearing Aid Opthamlomology History: Reports: Hx Cataracts - Bilateral, removed 2017, Hx Contacts or Glasses - Glasses Neurological History: Reports: Other Neuro Impairments/Disorders - Begning positional vertigo Psychiatric History: Denies: Hx Panic Disorder - Cancer History Hx Chemotherapy: No Hx Radiation Therapy: No - Surgical History Surgery Procedure, Year, and Place: Bilateral cataracts 2017. Colonoscopy x2. hernia repair 2018 Hx Anesthesia Reactions: Yes - low blood pressure Infectious Disease History: No Infectious Disease History: Denies: Hx Hepatitis, Hx Human Immunodeficiency Virus (HIV), History Other Infectious Disease, Traveled Outside the [place] in Last 30 Days - Family History Known Family History: Positive: None, Cardiac Disease - mitral valve prolapse - father and brother, Diabetes - Social History Alcohol Use: None Hx Substance Use: No Substance Use Type: Reports: None Hx Tobacco Use: No Smoking Status (MU): Never Smoked Tobacco Review of Systems Negative: Fever Positive: Abdominal Pain, Nausea. Negative: Vomiting, Diarrhea, Other - constipation Positive: frequency, flank pain. Negative: discharge, hematuria All Other Systems Reviewed And Are Negative: Yes Physical Exam - Summary Physical Exam Summary: Constitutional: Well-developed, Well-nourished, Alert. (-) Distressed Skin: Warm, Dry HENT: Normocephalic; Atraumatic Eyes: Conjunctiva normal Neck: Musculoskeletal ROM normal neck. (-) JVD, (-) Stridor, (-) Tracheal deviation Cardio: Rhythm regular, rate normal, Heart sounds normal; Intact distal pulses; Radial pulses are 2+ and symmetric. (-) Murmur Pulmonary/Chest wall: Effort normal. (-) Respiratory distress, (-) Wheezes, (-) Rales Abd: Soft, (-) tenderness, (-) Distension, (-) Guarding, (-) Rebound. RLQ pain and right flank tenderness. Negative Rovsings sign. Musculoskeletal: (-) Edema Lymph: (-) Cervical adenopathy Neuro: Alert, Oriented x3 Psych: Mood and affect Normal Triage Information Reviewed: Yes Vital Signs On Initial Exam: Initial Vitals Temp Pulse Resp BP Pulse Ox 98.1 F 71 18 164/91 100 12/08/18 16:35 12/08/18 16:35 12/08/18 16:35 12/08/18 16:35 12/08/18 16:35 Vital Signs Reviewed: Yes Procedures - Sedation Patient Received Moderate/Deep Sedation with Procedure: No Diagnostics - Vital Signs Vital Signs Temp Pulse Resp BP Pulse Ox 12/08/18 18:45 97.8 F 65 16 127/75 99 12/08/18 17:49 76 148/96 84 12/08/18 17:37 69 151/85 100 12/08/18 17:00 70 100 12/08/18 16:55 74 100 12/08/18 16:37 164/91 12/08/18 16:35 98.1 F 71 18 164/91 100 - Laboratory Lab Results: Lab Results 12/08/18 12/08/18 12/08/18 Range/Units 16:57 17:14 17:14 WBC 6.5 (3.5-10.8) 10^3/uL RBC 3.97 (3.70-4.87) 10^6 /uL Hgb 11.5 L (12.0-16.0) g/dL Hct 35 (35-47) % MCV 89 (80-97) fL MCH 29 (27-31) pg MCHC 33 (31-36) g/dL RDW 14 (10-15) % Plt Count 205 (150-450) 10^3/uL MPV 9.8 (7.4-10.4) fL Neut % (Auto) 64.8 % Lymph % (Auto) 25.5 % Major % (Auto) 7.5 % Eos % (Auto) 1.5 % Baso % (Auto) 0.7 % Absolute Neuts (auto) 4.2 (1.5-7.7) 10^3/ul Absolute Lymphs (auto) 1.7 (1.0-4.8) 10^3/ul Absolute Monos (auto) 0.5 (0-0.8) 10^3/ul Absolute Eos (auto) 0.1 (0-0.6) 10^3/ul Absolute Basos (auto) 0.0 (0-0.2) 10^3/ul Absolute Nucleated RBC 0.0 10^3/ul Nucleated RBC % 0.1 Sodium 139 (135-145) mmol/L Potassium 3.9 (3.5-5.0) mmol/L Chloride 106 (101-111) mmol/L Carbon Dioxide 27 (22-32) mmol/L Anion Gap 6 (2-11) mmol/L BUN 14 (6-24) mg/dL Creatinine 0.58 (0.51-0.95) mg/dL Est GFR ( Amer) 124.7 (>60) Est GFR (Non-Af Amer) 103.1 (>60) BUN/Creatinine Ratio 24.1 H (8-20) Glucose 88 (70-100) mg/dL Calcium 9.4 (8.6-10.3) mg/dL Total Bilirubin 0.30 (0.2-1.0) mg/dL AST 17 (13-39) U/L ALT 14 (7-52) U/L Alkaline Phosphatase 60 (34-104) U/L C-Reactive Protein 9.72 H (<8.01) mg/L Total Protein 6.7 (6.4-8.9) g/dL Albumin 4.0 (3.2-5.2) g/dL Globulin 2.7 (2-4) g/dL Albumin/Globulin Ratio 1.5 (1-3) Lipase 40 (11.0-82.0) U/L Urine Color Colorless Urine Appearance Clear Urine pH 7.0 (5-9) Ur Specific [place] 1.002 L (1.010-1.030) Urine Protein Negative (Negative) Urine Ketones Negative (Negative) Urine Blood Negative (Negative) Urine Nitrate Negative (Negative) Urine Bilirubin Negative (Negative) Urine Urobilinogen Negative (Negative) Ur Leukocyte Esterase Negative (Negative) Urine Glucose Negative (Negative) Result Diagrams: 12/08/18 17:14 12/08/18 17:14 Lab Statement: Any lab studies that have been ordered have been reviewed, and results considered in the medical decision making process. - CT AP CT CT Interpretation Completed By: Radiologist Summary of CT Findings: AP CT shows: 1. NO EVIDENCE OF ACUTE FINDING. 2. NONOBSTRUCTING LEFT RENAL CALCULUS. 3. HYPODENSE HEPATIC LESION SLIGHTLY INCREASED IN SIZE LIKELY REPRESENTING A CYST. INCOMPLETELY EVALUATED ON THIS NONCONTRAST STUDY. RECOMMEND AN FOLLOW-UP OUTPATIENTHEPATIC ULTRASOUND. 4. SMALL HIATAL HERNIA. An ED physician has reviewed this report. Back Pain Course/Dx - Course Course Of Treatment: Patient is here with right flank pain that renascent her right lower quadrant. Patient had most her pain in her flank was tender in her right lower quadrant. Patient had blood work performed which showed a normal WBC count. Patient has mildly elevated CRP. Patient had a CT scan of abdomen without contrast which showed no evidence of nephrolithiasis. Patient's pain was consistent with a musculoskeletal etiology although appendicitis could not be ruled out. Patient was instructed to come back in 24 hours for a recheck of her lab work and reevaluation of her abdomen. - Diagnoses Provider Diagnoses: Flank pain, RLQ abdominal pain Discharge ED - Sign-Out/Discharge Documenting (check all that apply): Patient Departure - Discharge - Discharge Plan Condition: Stable Disposition: HOME Prescriptions: Cyclobenzaprine TAB* [Flexeril 10 MG TAB*] 10 mg PO BID PRN #20 tab PRN Reason: muscle spasm Patient Education Materials: Flank Pain (ED) Referrals: Indiana Caputo MD [Primary Care Provider] - Additional Instructions: Please take ibuprofen 600 mg every 6 hours for pain Please take your prescribed muscle relaxant if ibuprofen is not working Please return to the ED immediately if you have worsening fever, vomiting, worsening abdominal pain Please return to the ED in 24 hours for a recheck of your labs and abdominal exam. If you want to see Dr. Daniel, come after 7 PM - Billing Disposition and Condition Condition: STABLE Disposition: Home - Attestation Statements Document Initiated by Ashlie: Yes Documenting Scribe: Eduardo Sanchez Provider For Whom Ashlie is Documenting (Include Credential): Stephen Daniel MD Scribe Attestation: Eduardo Green, scribed for Stephen Daniel MD on 12/08/18 at 2126. Scribe Documentation Reviewed: Yes Provider Attestation: The documentation as recorded by the Eduardo may accurately reflects the service I personally performed and the decisions made by , Stephen Daniel MD Status of Scribe Document: Viewed
== END 2018-12-08 18:45 | disposition home or self-care (01) ==
LOC: ED 16:27
DX: R10.31 Right lower quadrant pain (principal); M54.5 Low back pain; N20.0 Calculus of kidney; Z87.442 Personal history of urinary calculi; K44.9 Diaphragmatic hernia without obstruction or gangrene; R11.0 Nausea; R35.0 Frequency of micturition; Z88.2 Allergy status to sulfonamides; Z91.030 Bee allergy status; Z91.041 Radiographic dye allergy status
CPT/HCPCS: 36415; 74176; 80053; 81003; 83690; 85025; 86140; 96361; 96374; 99283; A9270-GY; J1885

== ENCOUNTER 2019-04-22 12:07 | Emergency (ER) | payer MEDICARE, OTHER ==
[2019-04-22 12:22] VITALS: BP 125/80
--- NOTE | 2019-04-22 12:54 | UC ---
Respiratory Complaint HPI - HPI Summary HPI Summary: 68 yo female presents with cough. She tells me that she has been taking care of her 15 yo grandson over the last 7-10 days who is recovering from PNA. Over the last 4-5 days pt has had a dry cough, but feels congested with post nasal drip and sinus congestion. She went to [facility] 2 days ago and tells me that she had a negative flu test and negative CXR. Her symptoms have not improved. She is not taken anything OTC for her symptoms. Denies fever, sore throat, SOB, chest pain, rash, abdominal pain. - History of Current Complaint Chief Complaint: UCRespiratory Stated Complaint: CHEST CONGESTION Time Seen by Provider: 04/22/19 12:54 Hx Obtained From: Patient Onset/Duration: Gradual Onset Severity Initially: Mild Severity Currently: Moderate Pain Intensity: 6 Pain Scale Used: 0-10 Numeric - Allergies/Home Medications Allergies/Adverse Reactions: Allergies Allergy/AdvReac Type Severity Reaction Status Date / Time sulfamethoxazole Allergy Hives Verified 04/22/19 12:23 [From Bactrim] trimethoprim [From Bactrim] Allergy Hives Verified 04/22/19 12:23 Bee Venom Allergy Severe Swelling Uncoded 04/22/19 12:23 iodine contrast Allergy Severe Hives Uncoded 04/22/19 12:23 any bug bite Allergy Intermediate Edema Uncoded 04/22/19 12:23 PMH/Surg Hx/FS Hx/Imm Hx - Additional Past Medical History Additional PMH: None - Surgical History Surgical History: Yes Surgery Procedure, Year, and Place: Bilateral cataract X2. hernia repair 2018 - Family History Known Family History: Positive: Cardiac Disease - mitral valve prolapse - father and brother, Diabetes - Social History Lives: With Family Alcohol Use: None Substance Use Type: None Smoking Status (MU): Never Smoked Tobacco - Immunization History Most Recent Influenza Vaccination: 2012/2013 Most Recent Tetanus Shot: UTD Review of Systems All Other Systems Reviewed And Are Negative: No Constitutional: Positive: Negative Skin: Positive: Negative Eyes: Positive: Negative ENT: Positive: Nasal Discharge, Sinus Congestion Respiratory: Positive: Cough Cardiovascular: Positive: Negative Gastrointestinal: Positive: Negative Neurological/Mental Status: Positive: Negative Psychological: Positive: Negative Physical Exam - Summary Physical Exam Summary: GENERAL: NAD. WDWN. No pain distress. SKIN: No rashes, sores, lesions, or open wounds. HEENT: Head: AT/NC Eyes: Conjunctiva clear without inflammation or discharge. Ears: Hearing grossly normal. TMs intact, no bulging, erythema, or edema. Nose: Nasal mucosa pink and moist. NTTP maxillary and frontal sinus. Throat: Posterior oropharynx without exudates, erythema, or tonsillar enlargement. Uvula midline. NECK: Supple. Nontender. No lymphadenopathy. CHEST: Mild wheezing throughout. No r/r. No accessory muscle use. Breathing comfortably and in no distress. CV: RRR. Pulses intact. Cap refill <2seconds NEURO: Alert. PSYCH: Age appropriate behavior. Triage Information Reviewed: Yes Vital Signs: Initial Vital Signs Temp 100.1 F 04/22/19 12: Pulse 86 04/22/19 12:19 Resp 18 04/22/19 12:19 BP 125/80 04/22/19 12:19 Pulse Ox 100 04/22/19 12:19 Cholecalciferol TAB* [Vitamin D TAB*] 1,000 unit PO QAM 11/10/14 [History Confirmed 04/22/19] Evening [place] Oil Softgel 500 mg PO QAM 08/21/17 [History Confirmed 04/22/19] Fish Oil 1,000 mg Softgel 1,000 mg pe PO DAILY 12/08/18 [History Confirmed 04/22] Albuterol HFA INHALER* [Ventolin HFA Inhaler*] 1 - 2 puff INH Q6H PRN #1 mdi [Rx] Azithromycin TAB* [Zithromax TAB (Z-GABBY) 250 mg #6 tabs] 2 tab PO .TODAY, THEN 1 DAILY #1 gabby 04/22/19 [Rx] Vital Signs Reviewed: Yes Diagnostics - Radiology CXR Radiology Interpretation Completed By: Radiologist Summary of Radiographic Findings: IMPRESSION: HYPERINFLATION. NO ACTIVE CARDIOPULMONARY DISEASE. Respiratory Course/Dx - Course Course Of Treatment: CXR as above. Suspect bronchitis. - Differential Dx/Diagnosis Provider Diagnosis: Bronchitis Discharge ED - Sign-Out/Discharge Documenting (check all that apply): Patient Departure All imaging exams completed and their final reports reviewed: Yes - Discharge Plan Condition: Stable Disposition: HOME Prescriptions: Albuterol HFA INHALER* [Ventolin HFA Inhaler*] 1 - 2 puff INH Q6H PRN #1 mdi PRN Reason: Sob/Wheezing Azithromycin TAB* [Zithromax TAB (Z-GABBY) 250 mg #6 tabs] 2 tab PO .TODAY, THEN 1 DAILY #1 gabby Patient Education Materials: Acute Bronchitis (ED) Referrals: Indiana Caputo MD [Primary Care Provider] - Additional Instructions: If you develop a fever, shortness of breath, chest pain, new or worsening symptoms - please call your PCP or go to the ED immediately. - Billing Disposition and Condition Condition: STABLE Disposition: Home
== END 2019-04-22 13:35 | disposition home or self-care (01) ==
LOC: UCEAST 12:07
DX: J40 Bronchitis, not specified as acute or chronic (principal); R09.89 Other specified symptoms and signs involving the circulatory and respiratory systems; R09.81 Nasal congestion; Z88.2 Allergy status to sulfonamides; Z91.041 Radiographic dye allergy status; Z91.030 Bee allergy status; Z91.038 Other insect allergy status
CPT/HCPCS: 71046; 99212; G0463